=== PATIENT | male | born 2005 | race Caucasian/White ===

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

== ENCOUNTER 2025-02-24 11:03 | Emergency (ER) | payer SELFPAY ==
--- NOTE | 2025-02-24 11:06 | XR_ITS ---
FINAL REPORT CLINICAL HISTORY: Shortness of breath and productive cough COMPARISON: None FINDINGS: A single frontal view of the chest was obtained. No acute pulmonary opacity is present. There is no evidence of effusion or pneumothorax. Mediastinum is unremarkable. Heart size is normal. IMPRESSION: No acute abnormality. Reviewed, Interpreted and Dictated by Christiano Adams MD Transcribed by Jacqueline Mejia Authenticated and [facility]
[2025-02-24 11:12] VITALS: BP 150/69; PULSE 78; RESP 16; TEMP 36.5; O2SAT 98; BMI 30.7
[2025-02-24 11:13] LABS: Coronavirus 19, PCR Not Detected (NotDetected); Influenza A, PCR Not Detected (NotDetected); Influenza B, PCR Not Detected (NotDetected)
--- NOTE | 2025-02-24 11:28 | HMH.EDGENADL ---
Discharge Plan Disposition Patient Disposition: Home, Self-Care Prescriptions Prescriptions: No Action pseudoephedrine HCl [12 Hour Nasal Decongest (PSE)] 120 mg tablet extended release 120 mg PO Q12H PRN (Reason: nasal congestion) Qty: 10 0RF fluticasone propionate [Flonase Allergy Relief] 50 mcg/actuation spray,suspension 1 spray intranasal DAILY Qty: 16 0RF Rx Instructions: administer into each nostril daily Referrals Follow up/Referrals: Brien Alvarez MD [Primary Care Provider, Internal Medicine] - See instructions Activity Restrictions/Add. Instructions Additional Instructions/Restrictions: Please follow-up with your family doctor in the upcoming days/week, I recommend [id number] cold and flu medications as needed for symptomatic relief, utilize ibuprofen Tylenol and other anti-inflammatory medication as needed. Clinical Impressions Clinical Impression: URI (upper respiratory infection) Instructions Patient Instructions: DI for Viral Upper Respiratory Infection -- Adult Print Language Print Language: Armenian Discharge ED Provider: Cee Alfaro Adult HPI General Chief complaint: Cough Stated complaint: chest pain Time Seen by Provider: 02/24/25 11:06 Mode of Arrival: Ambulatory Source of Information: Patient Description of Symptoms (Recalled from ER Triage Doc. by RN): Pt states he has been having a productive cough with green sputumn for approx 2 days. Pt states he has body aches, PEDERSON, and pain in chest only when he starts to cough hard. Pt currently denies any pain. History of Present Illness HPI narrative: 19-year-old male presents emergency department with URI type symptomatology, productive cough and congestion, subjective fever and chills for the last 2 days, he endorses recent sick contacts, he endorses myalgias, headache, denies any sore throat, patient admits to pain in my chest when coughing, no real shortness of breath, no nausea no vomiting no constipation no diarrhea no abdominal pain, urinary type symptomatology, patient has no real relevant past medical history takes no other medications at home, he is a current everyday smoker (vapes), denies any alcohol or drug use, initial triage vitals are grossly unremarkable. Onset (ago): day(s) Related Data Previous Rx's ?Medication ?Instructions ?Recorded fluticasone propionate 50 1 spray intranasal DAILY #16 grams 09/26/22 mcg/actuation nasal spray,suspension (Flonase Allergy Relief) pseudoephedrine HCl 120 mg 120 mg PO Q12H PRN nasal 09/26/22 tablet,extended release (12 Hour congestion #10 tabs Nasal Decongestant (PSE)) Allergies Allergy/AdvReac Type Severity Reaction Status Date / Time No Known Allergies Allergy Verified 10/06/22 09:07 [facility] Disclaimer: The information contained in this section may have been updated after the patient was seen, as this information can be updated by other users. Social History Smoking Status: Current every day smoker alcohol intake: never current occupational status: other Travel in the last 8 weeks?: None Have you lived/traveled outside US in past 30 days?: No Contact w/someone who lives/traveled outside US past 30 days?: No Exposure to someone with infectious disease in past 14 days?: No Do you have a fever (greater than 100.4 F or 38 C)?: No Have you tested positive for COVID-19?: No Exposed to someone with COVID-19 in past 14 days?: No Do you have a sore throat?: No Do you have a cough?: No Do you have any weakness?: No Do you have any diarrhea?: No Are you experiencing any unusual bleeding?: No Do you have any muscle aches/pain?: No Do you have any abdominal pain?: No Are you experiencing loss of taste or smell?: No Other Medical History Have you received the Flu Vaccine for this season: No Have you received the Pneumonia Vaccine: No ROS Obtained: Yes All systems reviewed & no additional complaints except as documented Physical Exam General General appearance: alert and in no apparent distress Head Head exam: atraumatic and normocephalic Eye Eye exam: Present PERRL and EOMI ENT ENT exam: Present normal exam, normal oropharynx and mucous membranes moist Neck Neck exam: Present normal inspection Chest Chest inspection: Present normal inspection and symmetric chest wall rise Respiratory Respiratory exam: Present normal lung sounds bilaterally; Absent respiratory distress Cardiovascular Cardiovascular exam: Present regular rate and normal rhythm Abdominal Exam Abdominal exam: Present soft; Absent tenderness Extremities Exam Extremities exam: Present normal inspection Neurological Exam Neurological exam: Present alert and oriented X3 Psychiatric Psychiatric exam: Present normal affect Skin Skin exam: Present warm and dry Medical Decision Making Medical Records Medical records reviewed: Yes I reviewed the patient's medical records. Screening: Per USPSTF and CDC recommendations, given the prevalence of disease in our region, it is our hospital?s policy to screen for HIV and viral Hepatitis for all patients aged 18 and over and those with ongoing risk factors. Camilo Inquiry Pt receiving controlled substance: No Camilo was queried for this patient: No Vital Signs: 02/24/25 11:12 Temperature 97.7 F Temperature Source Oral Pulse Rate [Left] 78 Respiratory Rate 16 Blood Pressure [Right Arm] 150/69 H Blood Pressure Mean [Right Arm] 96 Blood Pressure Source [Right Arm] Automatic Cuff 02 Sat by Pulse Oximetry 98 Oxygen Delivery Method Room Air Lab Data Lab Results 02/24/25 11:08: SARS-CoV-2 (PCR) Not detected, Influenza A Untype (PCR) Not detected, Influenza Type B (PCR) Not detected Orders (Tests/Meds): ED MEDICATIONS Discontinued Medications Generic Name Dose Route Start Last Admin Trade Name Freq PRN Reason Stop Dose Admin Acetaminophen 500 mg 02/24/25 11:36 02/24/25 11:42 Acetaminophen 500mg Tab PO 02/24/25 11:37 500 mg ONCE ONE Administration Ibuprofen 400 mg 02/24/25 11:36 02/24/25 11:42 Ibuprofen 400 Mg Tablet PO 02/24/25 11:37 400 mg ONCE ONE Administration ORDERS Category Date Time Status XR chest portable Stat Exams 02/24/25 11:06 Taken Rapid PCR Covid and Flu A/B Stat Lab 02/24/25 11:08 Completed Medical Decision Narrative: 19-year-old male presents emerged part with URI type symptomatology, differential diagnose include but not limited to, acute URI, acute bronchitis, COVID-19, influenza, pneumonia, acute rhinosinusitis among others. I discussed this patient's case with the attending physician Will obtain rapid antigen swabs for COVID-19 and influenza, as well as chest x-ray, will give 400 mg p.o. Motrin and 500 mg p.o. Tylenol for symptomatic relief. COVID-19, influenza A and B are negative The patient's chest x-ray along the corresponding radiologic report, no acute abnormality. I discussed the results with the patient at the bedside, recommend [id number] cold and flu medication for symptomatic relief, patient was understanding and agreement Contreet plan/discharge plan, patient follow-up PCP as directed. And was given strict ED return precautions. Critical Care Critical Care Time Critical Care Time: No
[2025-02-24] MEDS: IBUPROFEN 400 MG TABLET PO (11:42)
[2025-02-24] MEDS: ACETAMINOPHEN 500MG TAB 500 MG PO (11:42)
[2025-02-24 12:38] VITALS: BP 117/69; PULSE 78; RESP 19; TEMP 36.6; O2SAT 98
== END 2025-02-24 12:40 | disposition home or self-care (01) ==
PROVIDERS: Physician Assistant; Emergency Provider Student in an Organized Health Care Education/Training Program; PCP Internal Medicine Adolescent Medicine
DX: R07.9 Chest pain, unspecified (principal); J06.9 Acute upper respiratory infection, unspecified; F17.210 Nicotine dependence, cigarettes, uncomplicated
CPT/HCPCS: 71045; 87636; 99283

== ENCOUNTER 2025-05-30 07:34 | Emergency (ER) | payer SELFPAY ==
[2025-05-30 07:41] VITALS: BP 153/87; PULSE 88; RESP 18; TEMP 36.7; O2SAT 99; BMI 31.4
[2025-05-30] MEDS: SULFA/TRIMETHOPRIM 1 TABLET 1 EACH PO (08:10)
--- NOTE | 2025-05-30 08:11 | ED_ITS ---
Discharge Plan Disposition Patient Disposition: Home, Self-Care Prescriptions Prescriptions: New metronidazole 500 mg tablet 500 mg PO BID 7 Days Qty: 14 0RF sulfamethoxazole-trimethoprim [Bactrim DS] 800-160 mg tablet 1 tab PO BID 7 Days Qty: 14 0RF No Action pseudoephedrine HCl [12 Hour Nasal Decongest (PSE)] 120 mg tablet extended release 120 mg PO Q12H PRN (Reason: nasal congestion) Qty: 10 0RF fluticasone propionate [Flonase Allergy Relief] 50 mcg/actuation spray,suspension 1 spray intranasal DAILY Qty: 16 0RF Rx Instructions: administer into each nostril daily Referrals Follow up/Referrals: Brien Alvarez MD [Primary Care Provider, Internal Medicine] - See instructions Matteo Hackett MD [Staff Physician, General Surgery] - See instructions Activity Restrictions/Add. Instructions Additional Instructions/Restrictions: Please floss the vessel loop 1-2 times a day you may cut it out when it is no longer draining pus or blood. Return to the emergency department with any significant spreading redness fevers or other concerns. Once this is improved please follow-up with the surgeon to discuss definitive surgical management of the pilonidal sinus tract. Clinical Impressions Clinical Impression: Infected pilonidal cyst Instructions Patient Instructions: DI for Skin Abscess Print Language Print Language: Icelandic Discharge ED Provider: Bruno Ferraro General Adult HPI General Chief complaint: Skin/Abscess/Foreign Body Stated complaint: poss cyst on buttock area Time Seen by Provider: 05/30/25 07:38 Mode of Arrival: Ambulatory Source of Information: Patient Description of Symptoms (Recalled from ER Triage Doc. by RN): Reports a possible cyst at the top of his buttocks. Denies any drainage. Reports pain and states he has had one in the past. History of Present Illness HPI narrative: Patient is a 19-year-old male presenting today with that he believes is a pilonidal cyst. Has had 1 of these before but it was spontaneously improved without surgical intervention. Has never seen a surgeon in the past for definitive management. This has been ongoing for several days it is very painful. Related Data Previous Rx's ?Medication ?Instructions ?Recorded fluticasone propionate 50 1 spray intranasal DAILY #16 grams 09/26/22 mcg/actuation nasal spray,suspension (Flonase Allergy Relief) pseudoephedrine HCl 120 mg 120 mg PO Q12H PRN nasal tablet,extended release (12 Hour congestion #10 tabs Nasal Decongestant (PSE)) metronidazole 500 mg tablet 500 mg PO BID 7 days #14 t abs 05/30/25 sulfamethoxazole 800 1 tab PO BID 7 days #14 tabs 05/30/25 mg-trimethoprim 160 mg tablet (Bactrim DS) Allergies Allergy/AdvReac Type Severity Reaction Status Date / Time No Known Allergies Allergy Verified 10/06/22 09:07 [facility] Disclaimer: The information contained in this section may have been updated after the patient was seen, as this information can be updated by other users. Social History Smoking Status: Current every day smoker alcohol intake: never current occupational status: other Travel in the last 8 weeks?: None Have you lived/traveled outside US in past 30 days?: No Contact w/someone who lives/traveled outside US past 30 days?: No Exposure to someone with infectious disease in past 14 days?: No Do you have a fever (greater than 100.4 F or 38 C)?: No Have you tested positive for COVID-19?: No Exposed to someone with COVID-19 in past 14 days?: No Do you have a sore throat?: No Do you have a cough?: No Do you have any weakness?: No Do you have any diarrhea?: No Are you experiencing any unusual bleeding?: No Do you have any muscle aches/pain?: No Do you have any abdominal pain?: No Are you experiencing loss of taste or smell?: No Other Medical History Have you received the Flu Vaccine for this season: No Have you received the Pneumonia Vaccine: No ROS Obtained: Yes All systems reviewed & no additional complaints except as documented Physical Exam General General appearance: alert Respiratory Respiratory exam: Present normal lung sounds bilaterally Cardiovascular Cardiovascular exam: Present regular rate Back Exam Back 1 view image: 2 1. Evidence of fluctuant tender region with surrounding cellulitis Neurological Exam Neurological exam: Present alert and oriented X3 Medical Decision Making Medical Records Screening: Per USPSTF and CDC recommendations, given the prevalence of disease in our region, it is our hospital?s policy to screen for HIV and viral Hepatitis for all patients aged 18 and over and those with ongoing risk factors. Camilo Inquiry Pt receiving controlled substance: No Vital Signs: 05/30/25 07:41 Temperature 98.0 F Temperature Source Oral Pulse Rate [Radial] 88 Respiratory Rate 18 Blood Pressure [Right Arm] 153/87 H Blood Pressure Mean [Right Arm] 109 Blood Pressure Source [Right Arm] Automatic Cuff Blood Pressure Position [Right Arm] Sitting 02 Sat by Pulse Oximetry 99 Oxygen Delivery Method Room Air Orders (Tests/Meds): ED MEDICATIONS Discontinued Medications Generic Name Dose Route Start Last Admin Trade Name Cristopher PRN Reason Stop Dose Admin Metronidazole 500 mg 05/30/25 08:07 05/30/25 08:10 Metronidazole 500 Mg Tablet PO 05/30/25 08:08 500 mg ONCE ONE Administration Trimethoprim/Sulfamethoxazole 1 each 05/30/25 08:07 05/30/25 08:10 Sulfa/Trimethoprim 1 Tablet PO 05/30/25 08:08 1 each ONCE ONE Administration ORDERS Category Date Time Status POCUS Point of Care (ER Only) Stat Exams 05/30/25 07:42 Ordered HIV Combo Stat Lab 05/30/25 07:44 Ordered Hepatitis C Ab Qual. W/ RFX Stat Lab 05/30/25 07:44 Ordered Medical Decision Narrative: 19-year-old with above history and physical bedside ultrasound was performed to confirm localize drainable fluid collection which was affirmed. Patient had successful incision and drainage and vessel loop that was placed. Return precautions wound management discussed Bactrim and Flagyl given for MRSA and anaerobic coverage. Patient given surgical referral as well. Procedures Abscess I/D Site: other (Buttock pilonidal cyst) Local Anesthetic: lidocaine 1% and with epi Amount of anesthesia used (mL): 5 Technique: incised with #11 blade Amount of fluid expressed (mL): 4 Irrigation: No Packing used?: none (Vessel loop) Miscellaneous Procedure Procedure Performed: Limited soft tissue ultrasound Indication: Soft tissue pain and swelling Identified structures: Location: Pilonidal cyst region Findings: There was a localized drainable fluid collection about 1/2 cm in depth that measured 1 x 1 cm Impression: Evidence of a localized drainable fluid collection consistent with an infected pilonidal cyst Images were saved to permanent archive The study was technically adequate Soft Tissue CPT Codes: CPT Neck: 39233-28 CPT Upper extremity: 83133-74 CPT Axilla: 70180-47 CPT Chest wall: 61089-06 CPT Breast: 10780-15-DQ/LT (complete), 95551-15-LO/LT (limited), CPT Upper Back: 68657-21 CPT Lower Back: 86813-37 CPT Abdominal Wall: 99438-68 CPT Pelvic Wall: 17474-38 CPT Lower Extremity: 53604-99 CPT Other Soft Tissue: 46228-32 This study was performed by me, and I personally interpreted all images/videos. Based on my clinical judgement, these images were adequate and did not necessitate further imaging. Critical Care Critical Care Time Critical Care Time: No
[2025-05-30 08:17] VITALS: BP 148/77; PULSE 81; RESP 15; TEMP 36.6; O2SAT 99
== END 2025-05-30 08:18 | disposition home or self-care (01) ==
PROVIDERS: Emergency Provider Student in an Organized Health Care Education/Training Program; PCP Internal Medicine Adolescent Medicine
DX: L05.01 Pilonidal cyst with abscess (principal)
CPT/HCPCS: 10061; 11770; 99283; J2004